=== PATIENT | male | born 1985 | race Two or more races ===

== ENCOUNTER 2018-04-15 15:05 | Emergency (ER) | payer SELFPAY ==
[~2018-04-15] VITALS: Ht 170.2 cm; Wt 63.5 kg
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
[2018-04-15] MEDS ORDERED: KETOROLAC TROMETHAMINE INJ 60 MG/2 ML VIAL IM ONE (15:30)
[2018-04-15] MEDS ORDERED: ONDANSETRON 4 MG TAB.RAPDIS SL ONE (15:30)
[2018-04-15] MEDS ORDERED: KETOROLAC TROMETHAMINE INJ 30 MG/ML VIAL ONE (15:35)
[2018-04-15] MEDS ORDERED: ONDANSETRON 4 MG TAB.RAPDIS ONE (15:35)
--- NOTE | 2018-04-15 15:45 | NUR ---
PT TAKEN TO CT
--- NOTE | 2018-04-15 16:51 | NUR ---
Patient discharged to home in stable condition. Written and verbal after care instructions given. Patient verbalizes understanding of instruction.
[2018-04-15 17:01] VITALS: BP 122/71
== END 2018-04-15 17:01 | disposition home or self-care (01) ==
LOC: ER 15:07
DX: S00.11XA Contusion of right eyelid and periocular area, initial encounter (principal); S00.81XA Abrasion of other part of head, initial encounter; F17.200 Nicotine dependence, unspecified, uncomplicated; M79.1 Myalgia; V43.52XA Car driver injured in collision with other type car in traffic accident, initial encounter; Y93.89 Activity, other specified; Y92.413 State road as the place of occurrence of the external cause; Y99.8 Other external cause status
CPT/HCPCS: 70450-TC; 70486-TC; 71045-TC; 72074-TC; 72100-TC; 72125-TC; 72170-TC; 73560-TC; J1885; L0172; Q0162; Z7610